=== PATIENT | male | born 1965 | race Caucasian/White ===

== ENCOUNTER 2022-06-19 10:54 | Emergency (ER) | payer MEDICAID, OTHER ==
[~2022-06-19] VITALS: Ht 182.9 cm; Wt 93.7 kg
[2022-06-19 11:53] VITALS: BP 141/90
== END 2022-06-19 12:33 | disposition left against medical advice (07) ==
LOC: ER 10:54
DX: R05.9 Cough, unspecified (principal); R51.9 Headache, unspecified; Z53.21 Procedure and treatment not carried out due to patient leaving prior to being seen by health care provider